=== PATIENT | female | born 1945 | race Caucasian/White ===

== ENCOUNTER 2017-02-10 16:50 | Inpatient (IN) | payer BC, OTHER ==
[~2017-02-10] VITALS: Ht 165.1 cm; Wt 92.0 kg
[~2017-02-10 16:50] MED LIST: ADVIN25050 INH; ASCA500 PO; ATEN-173 PO; CBCI IV; CLTP PO; CLX20 PO; CUBICIN IV; HYDC25 PO; OXYC-57 PO; SYN50 PO
[2017-02-10 17:39] LABS: HEMATOCRIT 37.9 % (37-47); MEAN CELL VOLUME 96.4 fL (80-100); MEAN CORPUSCULAR HEMOGLOBIN 30.8 pg (25-34); MEAN CORPUSCULAR HGB CONC 31.9 g/dl (32-36); MEAN PLATELET VOLUME 11.3 fL (7.4-10.4); PLATELET COUNT 181 K/uL (130-400); RED BLOOD COUNT 3.93 M/uL (4.2-5.4); WHITE BLOOD COUNT 6.41 K/uL (4.8-10.8)
[2017-02-10 17:52] LABS: INR 1.1 (0.9-1.1); PROTHROMBIN TIME (PATIENT) 11.4 SECONDS (9.0-12.0)
--- NOTE | 2017-02-10 17:54 | History and Physical ---
History & Physical Date & Time of Service: Feb 10, 2017 at 17:35 Chief Complaint: Knee Laceration, Possible Infection Primary Care Physician: Yovani Kraft D.O. History of Present Illness Source: patient History of Present Illness: 1. right knee laceration check Ms Thakur is a 71 year old female who is here for a follow up of right knee laceration check. She presents with Laceration check on the right side. She states that the symptoms have been acute traumatic and began 2 weeks ago. She indicates the injury occurred at home. Bree states that the symptoms began as the result of a fall. The symptoms occur constantly. The problem is worse. Pt. reports in the past couple days her laceration wound has slightly opened and has produced some drainage. Currently the patient states that the symptoms are moderate. The pain is described as Swelling and Drainage. The symptoms occur continuously. The symptoms are aggravated by Bending. In addition to right knee laceration check the patient is also experiencing tenderness and Red & Draining. The patient has had a previous x-ray. Pt. is on Keflex She has had Pt. is ambulating with cane and wearing knee immobilizer. Patient has had joint replacement. 05-06-09 Dr. Bruno performed Original Right TKA. 01-26-11 Right knee arthroscopy with synovectomy, excision neuroma & patella bursa with rev. medial portal. 04-15-11 Right TKA I & D medial portal. 05-02-11 Right TKA I & D medial portal with wound vac. 08-17-11 Right TKA ANNALISE. Past Medical/Surgical History PAST MEDICAL HISTORY: 1. COPD. 2. Depression. 3. Headaches. 4. Hypertension. 5. Thyroid disease. Immunizations History of Influenza Vaccine: Yes Influenza Vaccine Date: May 16, 2010 History of Tetanus Vaccine?: Yes History of Pneumococcal: Yes History of Hepatitis B Vaccine: Yes Allergies Coded Allergies: Iodine (Verified Allergy, Severe, ANAPHYLAXIS,RASH,REDNESS, 09/11/09) Naloxone (Unverified Allergy, Mild, nausea, 04/15/11) Sulfa Drugs (Verified Allergy, Unknown, RASH, TAKES HCTZ AT HOME, 09/11/09) Adhesives (Verified Adverse Reaction, Mild, SKIN TEARING AND BLISTERING, ) Codeine (Verified Adverse Reaction, Unknown, NAUSEA, 09/11/09) Hydrocodone (Verified Adverse Reaction, Unknown, N&V, 09/11/09) Morphine (Verified Adverse Reaction, Unknown, N&V, 09/11/09) Pentazocine (Verified Adverse Reaction, Unknown, NAUSEA, 09/11/09) Propoxyphene (Verified Adverse Reaction, Unknown, N&V, TAKES AT HOME, ) GENERIC ONLY - CAUSES REACTION Tramadol (Verified Adverse Reaction, Unknown, NAUSEA, 05/15/10) Home Medications Scheduled Ascorbic Acid (Vitamin C *), 500 MG PO BID Atenolol (Tenormin), 25 MG PO QAM Calcium/Vitamin D (Caltrate 600 Plus *), 1 TAB PO BID Citalopram (Celexa *), 20 MG PO QAM Daptomycin (Cubicin), 470 MG IV DAILY Fluticasone Prop/Salmeterol (Advair Diskus 250/50 Mcg *), 1 PUFF INH Q12HR Hydrochlorothiazide (Hctz *), 12.5 MG PO QAM Levothyroxine (Synthroid *), 0.05 MG PO QAM Oxycodone/Acetaminophen 5MG/325MG (Percocet 5MG/325MG), 1-2 TABLETS PO Q4-6HR PRN [Cubicin], 500 MG IV DAILY Scheduled PRN Oxycodone/Acetaminophen 5MG/325MG (Percocet 5MG/325MG), 1-2 TAB PO Q4H PRN Oxycodone/Acetaminophen 5MG/325MG (Percocet 5MG/325MG), 1-2 TAB PO Q4-6HR PRN PRN Review of Systems Constitutional: No fever, No chills, No sweats, No weight loss, No weakness, No fatigue, No problem reported Eyes: No worsening of vision, No eye pain, No redness, No discharge, No diplopia, No problem reported ENT: No hearing loss, No unusual epistaxis, No nasal symptoms, No sore throat, No tinnitus, No dental problems, No trouble swallowing, No problem reported Respiratory: No cough, No sputum, No wheezing, No shortness of breath, No dyspnea on exertion, No dyspnea at rest, No hemoptysis, No problem reported Cardiovascular: No chest pain, No orthopnea, No PND, No edema, No claudication , No palpitations, No problem reported Abdomen: No pain, No nausea, No vomiting, No diarrhea, No constipation, No GI bleeding, No problem reported Physical Exam General Appearance: WD/WN, no apparent distress Head: normocephalic, atraumatic Eyes: normal inspection, PERRL ENT: normal ENT inspection Neck: supple Respiratory/Chest: chest non-tender, lungs clear Cardiovascular: regular rate, rhythm, no edema Right knee significant for laceration just distal to patella, approximately 5cm in length, skin edges approximated with nylon sutures. no significant drainage at present time. NVDI. ligamentously stable. slight erythema Diagnostics Laboratory Results Results Past 24 Hours Test 02/10/17 17:22 Range/Units Impression Assessment and Plan Right knee laceration, possible cellulitis s/p Right TKA in 2008 -will admit for IV abx and observation -knee immobilizer, may WBAT. no forced flexion, allowed to flex to 60 degrees. -consult ID for recommendations of Abx VTE Prophylaxis VTE Risk Assessment Done? Y/N: Yes Risk Level: Low
[2017-02-10 18:03] LABS: BLOOD UREA NITROGEN 14 mg/dl (7-18); BUN/CREATININE RATIO 12.8 (10-20); C-REACTIVE PROTEIN 1.11 mg/dl (0-0.29); CALCIUM 9.3 mg/dl (8.5-10.1); CARBON DIOXIDE 33 mmol/L (21-32); CHLORIDE 103 mmol/L (98-107); GLUCOSE 88 mg/dl (70-99); POTASSIUM 3.6 mmol/L (3.5-5.1); SODIUM 141 mmol/L (136-145)
[2017-02-10 19:11] VITALS: BP 130/83; PULSE 57; TEMP 37.1; O2SAT 96; Ht 165.1 cm; Wt 92.0 kg
[2017-02-10] MEDS: CEFAZOLIN IV 1,000 MG in DEXTROSE 5% 50ML 50 ML IV SCH (19:31)
[2017-02-10] MEDS: D5W AND 1/2NSS 1,000 ML IV SCH (19:31)
[2017-02-10] MEDS ORDERED: FRS/40 PO (20:34)
[2017-02-10] MEDS ORDERED: LEVO50TA6 PO (20:36)
[2017-02-10] MEDS ORDERED: GABA-113 PO (20:38)
[2017-02-10] MEDS ORDERED: LISI-729 PO (20:39)
[2017-02-10] MEDS ORDERED: LORA-741 PO (20:41)
[2017-02-10] MEDS ORDERED: POTA10TA32 PO (20:43)
[2017-02-10] MEDS ORDERED: SIMV20TA2 PO (20:46)
[2017-02-10] MEDS ORDERED: PRLSR20 PO (20:46)
[2017-02-10] MEDS: DOCUSATE SODIUM 100 MG CAP PO SCH (21:38)
[2017-02-10] MEDS ORDERED: NURSING VERBAL MED ORDER ONE (22:00)
[2017-02-10] MEDS ORDERED: OXYCODONE/ACETAMINOPHEN 5-325 TAB PO PRN (22:15)
[2017-02-10 22:46] VITALS: BP 112/68; PULSE 56; TEMP 36.8; O2SAT 95
[2017-02-11] MEDS: CEFAZOLIN IV 1,000 MG in DEXTROSE 5% 50ML 50 ML IV SCH ×3 (02:03→18:43)
[2017-02-11] MEDS: D5W AND 1/2NSS 1,000 ML IV SCH ×2 (05:47→19:30)
[2017-02-11 07:12] VITALS: BP 120/71; PULSE 56; TEMP 36.4; O2SAT 97
[2017-02-11] MEDS: DOCUSATE SODIUM 100 MG CAP PO SCH ×2 (09:01→20:47)
[2017-02-11] MEDS: PANTOprazole SOD 40 MG TAB PO SCH (09:01)
--- NOTE | 2017-02-11 09:25 | Medical Consult ---
Consultation Date of Consultation: Feb 11, 2017. Attending Physician: Akin Bruno D.O. History of Present Illness pt fell at home and cut right knee on floor, had stitches but felt middle of wound left open, continued to drain. was given 6 days keflex at time of laceration, then stopped. last week leg became red and warm, continued to drain , no purulence. + bleeding. + pain, no f/c. went to office, started back on keflex on but had worsening eyrthema in lower leg, admitted. still no fevers. no leukocytosis. placed on ancef, tolerating well. allergy to sulfa. no cultures. all remaining ros reviewed and are negative. Social History Smoking Status: Former Smoker Allergies Coded Allergies: Iodine (Verified Allergy, Severe, ANAPHYLAXIS,RASH,REDNESS, 09/11/09) Naloxone (Unverified Allergy, Mild, nausea, 04/15/11) Sulfa Drugs (Verified Allergy, Unknown, RASH, TAKES HCTZ AT HOME, 09/11/09) Adhesives (Verified Adverse Reaction, Mild, SKIN TEARING AND BLISTERING, ) Codeine (Verified Adverse Reaction, Unknown, NAUSEA, 09/11/09) Hydrocodone (Verified Adverse Reaction, Unknown, N&V, 09/11/09) Morphine (Verified Adverse Reaction, Unknown, N&V, 09/11/09) Pentazocine (Verified Adverse Reaction, Unknown, NAUSEA, 09/11/09) Propoxyphene (Verified Adverse Reaction, Unknown, N&V, TAKES AT HOME, ) GENERIC ONLY - CAUSES REACTION Tramadol (Verified Adverse Reaction, Unknown, NAUSEA, 05/15/10) Current Inpatient Medications Current Inpatient Medications Medications (Trade) Dose Ordered Sig/Rodolfo Route Start Time Stop Time Status Last Admin Dose Admin Acetaminophen (Tylenol Tab) 650 mg Q6H PRN PO 02/10/17 17:00 03/12/17 16:59 Diphenhydramine HCl (Benadryl Cap) 25 mg Q8 PRN PO 02/10/17 17:00 03/12/17 16:59 Docusate Sodium (coLACE CAP) 100 mg BID PO 02/10/17 21:00 03/12/17 20:59 02/11/17 09:01 100 MG Pantoprazole Sodium (Protonix Tab) 40 mg QAM PO 02/11/17 09:00 03/13/17 08:59 02/11/17 09:01 40 MG Dextrose/Sodium Chloride 1,000 ml @ 75 mls/hr [id number] IV 02/10/17 16:54 03/12/17 16:53 02/11/17 05:47 75 MLS/HR Cefazolin Sodium 1000 mg/Dextrose 55 ml @ 100 mls/hr Q8H IV 02/10/17 18:00 02/13/17 16:59 02/11/17 02:03 100 MLS/HR Oxycodone/ Acetaminophen (Percocet 5-325mg Tab) `1-2 tabs for pain 1 tab ... Q4H PRN PO 02/10/17 22:15 02/24/17 22:14 02/10/17 22:27 1 TAB Physical Exam Date Time Temp Pulse Resp B/P (MAP) Pulse Ox O2 Delivery O2 Flow Rate FiO2 02/11/17 07:28 Room Air 02/11/17 07:12 36.4 56 16 120/71 (87) 97 Room Air 02/11/17 00:30 Room Air 02/10/17 22:46 36.8 56 16 112/68 (83) 95 Room Air 02/10/17 19:11 37.1 57 20 130/83 96 Room Air General Appearance: WD/WN, no apparent distress Head: normocephalic, atraumatic Eyes: normal inspection, EOMI Neck: supple Respiratory/Chest: lungs clear, normal breath sounds, no respiratory distress Cardiovascular: regular rate, rhythm, no edema Abdomen/GI: non tender, soft Extremities/Musculoskelatal: no pedal edema, + pertinent finding (right knee laceration with stitches in place, min erythema, no warmth, dried blood noted, no active drainage) Neurologic/Psych: alert, oriented x 3 Skin: normal color, no rash Laboratory Results Last 24 Hours Test 02/10/17 17:22 White Blood Count 6.41 K/uL Red Blood Count 3.93 M/uL Hemoglobin 12.1 g/dL Hematocrit 37.9 % Mean Corpuscular Volume 96.4 fL Mean Corpuscular Hemoglobin 30.8 pg Mean Corpuscular Hemoglobin Concent 31.9 g/dl RDW Standard Deviation 49.9 fL RDW Coefficient of Variation 14.1 % Platelet Count 181 K/uL Mean Platelet Volume 11.3 fL Erythrocyte Sedimentation Rate 28 mm/hr Prothrombin Time 11.4 SECONDS Prothromb Time International Ratio 1.1 Sodium Level 141 mmol/L Potassium Level 3.6 mmol/L Chloride Level 103 mmol/L Carbon Dioxide Level 33 mmol/L Anion Gap 5.0 mmol/L Blood Urea Nitrogen 14 mg/dl Creatinine 1.10 mg/dl Estimated GFR () 58.9 Estimated GFR (Non- 50.8 BUN/Creatinine Ratio 12.8 Random Glucose 88 mg/dl Calcium Level 9.3 mg/dl C-Reactive Protein 1.11 mg/dl Assessment & Plan (1) Knee laceration Assessment & Plan: would consider change to vanco to add for potential mrsa. would obtain culture if drainage. sulfa allergy, if improved, could d/c doxy 100mg po bid with food to coverage for mrsa as well.
--- NOTE | 2017-02-11 11:04 | Progress Note ---
Orthopedic SOAP Note Subjective Date of Service: Feb 11, 2017. Additional Notes: no significant pain Objective cellulitis right lower leg ,laceration with no further drainage and I could not express any pus,minimal erythema,no change in partial wound dehiscence. Date Time Temp Pulse Resp B/P (MAP) Pulse Ox O2 Delivery O2 Flow Rate FiO2 02/11/17 07:28 Room Air 02/11/17 07:12 36.4 56 16 120/71 (87) 97 Room Air 02/11/17 00:30 Room Air 02/10/17 22:46 36.8 56 16 112/68 (83) 95 Room Air 02/10/17 19:11 37.1 57 20 130/83 96 Room Air Laboratory Results 24 Hours: Test 02/10/17 17:22 Hematocrit 37.9 % Hemoglobin 12.1 g/dL Prothromb Time International Ratio 1.1 Prothrombin Time 11.4 SECONDS Assessment wound infection improved ,ongoing cellulitis Plan nonsurgical treatment,IV antibiotics per infectious disease, a superficial wound culture may not be helpful unless any further drainage detected.
[2017-02-11 15:11] VITALS: BP 119/78; PULSE 63; TEMP 36.4; O2SAT 97
[2017-02-11] MEDS ORDERED: NURSING VERBAL MED ORDER ONE (20:15)
[2017-02-11] MEDS ORDERED: ONDANSETRON INJ 2 MG/ML 2 ML VIAL IV PRN (20:30)
[2017-02-11 22:51] VITALS: BP 144/75; PULSE 63; TEMP 36.8; O2SAT 95
[2017-02-12] MEDS: CEFAZOLIN IV 1,000 MG in DEXTROSE 5% 50ML 50 ML IV SCH ×3 (01:51→18:24)
[2017-02-12 07:12] VITALS: BP 138/84; PULSE 66; TEMP 36.9; O2SAT 94
--- NOTE | 2017-02-12 08:34 | Orthopedic Progress Note ---
Orthopedic Progress Note Date of Service Feb 12, 2017. Subjective Reports: feeling well Objective N/V intact, toes mobile Laceration anterior knee intact with sutures, small eschar mid portion, no drainage or erythema Date Time Temp Pulse Resp B/P (MAP) Pulse Ox O2 Delivery O2 Flow Rate FiO2 02/12/17 07:12 36.9 66 17 138/84 (102) 94 Room Air 02/11/17 23:05 Room Air 02/11/17 22:51 36.8 63 16 144/75 (98) 95 Room Air 02/11/17 15:45 Room Air 02/11/17 15:11 36.4 63 18 119/78 (92) 97 Room Air Assessment & Plan Assessment: 71 yo female with improving cellulitis right knee/lower extremity Plan: 1. Cont IV abx possibly another 24 hours and then likely d/c on po abx pending ID recommendations
[2017-02-12] MEDS: PANTOprazole SOD 40 MG TAB PO SCH (08:57)
[2017-02-12] MEDS: DOCUSATE SODIUM 100 MG CAP PO SCH ×2 (08:57→21:01)
[2017-02-12] MEDS: ACETAMINOPHEN 325 MG TAB PO PRN ×2 (08:58→22:08)
[2017-02-12 10:35] VITALS: BP 147/81; PULSE 60
[2017-02-12] MEDS: LISINOPRIL 2.5 MG TAB PO SCH (10:35)
[2017-02-12 14:58] VITALS: BP 119/76; PULSE 53; TEMP 37.1; O2SAT 92
[2017-02-12 22:55] VITALS: BP 147/73; PULSE 60; TEMP 36.8; O2SAT 95
[2017-02-13] MEDS: CEFAZOLIN IV 1,000 MG in DEXTROSE 5% 50ML 50 ML IV SCH ×2 (01:39→09:30)
[2017-02-13 06:59] VITALS: BP 148/82; PULSE 64; TEMP 37; O2SAT 92
--- NOTE | 2017-02-13 07:02 | Orthopedic Progress Note ---
Orthopedic Progress Note Date of Service Feb 13, 2017. Subjective Reports: feeling well, pain controlled w PO medications, Denies: complaints, chest pain, SOB, nausea / vomiting, light headedness, calf pain Additional Notes: denies fever/chills, denies drainage since Monday, decreased redness. Objective calves soft nontender, N/V intact, capillary refill less than 2 sec., A&O x3, toes mobile healing laceration just distal to inferior pole patella, horizontal laceration, sutures intact. no drainage noted, decreased erythema around laceration. Calf SNT. Date Time Temp Pulse Resp B/P (MAP) Pulse Ox O2 Delivery O2 Flow Rate FiO2 02/12/17 23:15 Room Air 02/12/17 22:55 36.8 60 16 147/73 (97) 95 Room Air 02/12/17 15:15 Room Air 02/12/17 14:58 37.1 53 16 119/76 (90) 92 Room Air 02/12/17 10:35 60 147/81 (103) 02/12/17 08:28 Room Air 02/12/17 07:12 36.9 66 17 138/84 (102) 94 Room Air Assessment & Plan Assessment: 71 yo female with improving cellulitis right knee/lower extremity Plan: Cellulitis continues to improve, will plan for dc today on PO Abx bid. has follow up appt on Monday for suture removal in the office, will recheck at that time. contact us sooner with any worsening of her symptoms/increased redness/drainage. (1) Knee laceration Discharge Planning Discharge Planning: home
--- NOTE | 2017-02-13 07:06 | Discharge Instructions ---
Discharge Instructions Date of Service Feb 13, 2017. Admission Reason for Admission: Knee Laceration, Possible Infection Discharge Discharge Diagnosis / Problem: Left knee cellulitis/laceration Discharge Goals Goal(s): Decrease discomfort, Improve function, Increase independence Activity Recommendations Activity Limitations: as noted below May Resume Sexual Activity: when tolerated Shower/Bathe: keep incision dry Driving or Machine Use: no limitations (unless taking Percocet) Weightbearing Status: Left weightbearing (as tolerated) . Instructions / Follow-Up Instructions / Follow-Up ACTIVITY RECOMMENDATIONS: A. You may progress at your own pace from walking with a walker or crutches to a cane; then to no assistive devices. B. Make walking a part of your daily routine. Be up as much as comfortable with rest periods throughout the day. Rest with leg elevation is very important. Use the ice wrap frequently for the first 3-4 weeks. C. There are no restrictions on activities. You may ride in a car, shop, participate in distribution engineering technologist and all social activities. D. You may shower, no tub baths until cleared by your doctor. SPECIAL CARE INSTRUCTIONS: VERY IMPORTANT TO READ AND REVIEW A. There are a few signs you need to watch for after you are home. Call [facility] if you notice any of the followin. Increased severe knee pain. Some pain is expected especially when you exercise. 2. Increased swelling in your leg or knee; pain or swelling of the calf muscle in either lower leg. 3. Any fluid drainage from the incision. 4. Shortness of breath or chest pain. B. Please call [facility] at if you have any concerns or questions about your operation or recovery. The doctor or his nurse will return your call promptly. C. You must take your Doxycycline twice daily with food as prescribed until course is completed. IMPORTANT: * CALL IF INCREASED PAIN, REDNESS, DRAINAGE OR FEVER GREATER THAT 101. FOLLOW UP VISIT: You have a follow up appointment scheduled for this Monday02/15/17. Current Hospital Diet Patient's current hospital diet: Regular Diet Discharge Diet Recommended Diet: Regular Diet Pending Studies Studies pending at discharge: no Medical Emergencies . Who to Call and When: Medical Emergencies: If at any time you feel your situation is an emergency, please call 911 immediately. . Non-Emergent Contact Non-Emergency issues call your: Primary Care Provider, Surgeon . "Provider Documentation" section prepared by Zach Quinones. . VTE Core Measure Inpt VTE Proph given/why not?: Treatment not indicated [place] Drug Monitoring Program Search Results: patient reviewed within database, no issues identified
[2017-02-13] MEDS ORDERED: DOXY100C76 PO (07:11)
[2017-02-13] MEDS ORDERED: OXYC-57 PO (07:11)
[2017-02-13] MEDS: LISINOPRIL 2.5 MG TAB PO SCH (09:00)
[2017-02-13 09:25] VITALS: BP 136/81; PULSE 57
[2017-02-13] MEDS: DOCUSATE SODIUM 100 MG CAP PO SCH (09:26)
[2017-02-13] MEDS: PANTOprazole SOD 40 MG TAB PO SCH (09:27)
--- NOTE | 2017-02-13 09:36 | Discharge Summary ---
Orthopedic Discharge Summary Admission Date/Reason Feb 10, 2017 at 17:06 Knee Laceration, Possible Infection. Discharge Date/Disposition Feb 13, 2017 Home Diagnosis Principal Diagnosis: Right knee cellulitis Procedure(s) Performed NONE Consultations Infectious Disease Medication Reconciliation New Medications: Doxycycline Monohydrate (Monodox) 100 Mg Cap 100 MG PO BID for 14 Days, #28 CAP take with food Changed Medications: Oxycodone/Acetaminophen 5MG/325MG (Percocet 5MG/325MG) Tab 1-2 TABLETS PO Q6HWA PRN for Pain, #36 0 Refills (Changed from: 1 - 2 TABLETS; Q4-6HR PRN) PAIN Continued Medications: Ascorbic Acid (Vitamin C *) 500 Mg Tab 500 MG PO BID, 0 Refills Atenolol (Tenormin) 25 Mg Tab 25 MG PO QAM Calcium/Vitamin D (Caltrate 600 Plus *) Tab 1 TAB PO BID, 0 Refills Citalopram (Celexa *) 20 Mg Tab 20 MG PO QAM Fluticasone Prop/Salmeterol (Advair Diskus 250/50 Mcg *) Aerp 1 PUFF INH Q12HR Furosemide (Lasix) 40 Mg Tab 40 MG PO BID, TAB Gabapentin (Neurontin) 300 Mg Cap 300 MG PO BID, #2 CAP Hydrochlorothiazide (Hctz *) 12.5 Mg Cap 12.5 MG PO QAM Levothyroxine (Synthroid *) 0.05 Mg Tab 0.05 MG PO QAM Levothyroxine Sodium (Levothyroxine Sodium) 50 Mcg Tab 1 TAB PO DAILY for 30 Days, #30 TAB 5 Refills Lisinopril (Zestril) 5 Mg Tab 5 MG PO DAILY, #0.5 TAB Lorazepam (Ativan) 0.5 Mg Tab 0.5 MG PO DAILY, #1 TAB Omeprazole (Prilosec) 20 Mg Capcr 20 MG PO DAILY, CAP Potassium Chloride Microencaps (Potassium Chloride Er) 10 Meq Tab 1 TAB PO BID for 30 Days, #60 TAB 5 Refills Simvastatin (Zocor) 20 Mg Tab 1 TAB PO HS for 90 Days, #90 TAB 1 Refill Discontinued Medications: Daptomycin (Cubicin) 50 Mg/Ml Inj 470 MG IV DAILY for 10 Days, 0 Refills Oxycodone/Acetaminophen 5MG/325MG (Percocet 5MG/325MG) Tab 1 - 2 TAB PO Q4H PRN, #36 0 Refills Oxycodone/Acetaminophen 5MG/325MG (Percocet 5MG/325MG) Tab 1 - 2 TAB PO Q4-6HR PRN PRN, #60 0 Refills [Cubicin] () 500 MG IV DAILY "I GET THIS AT NOON" Admission Physical Exam As per Admitting History & Physical. Hospital Course Bree was admitted on 02/10/17 for IV antibiotics after developing cellulitis around a right leg wound that she sustained after having a fall. She had a previous TKA in 2008. she was admitted and received IV antibiotics, Infectious disease was consulted and followed along. Her redness has improved, and after evaluation on 02/13/17, she will be discharged on PO Doxycycline twice a day for 2 weeks. will f/u on 02/15/17 for suture removal. Last Vital Signs Documentation Date Time Temp Pulse Resp B/P (MAP) Pulse Ox O2 Delivery O2 Flow Rate FiO2 02/13/17 09:25 57 136/81 (99) 02/13/17 06:59 37.0 17 92 Room Air Test 02/10/17 17:22 Range/Units White Blood Count 6.41 4.8-10.8 K/uL Red Blood Count 3.93 4.2-5.4 M/uL Hemoglobin 12.1 12.0-16.0 g/dL Hematocrit 37.9 37-47 % Mean Corpuscular Volume 96.4 80-100 fL Mean Corpuscular Hemoglobin 30.8 25-34 pg Mean Corpuscular Hemoglobin Concent 31.9 32-36 g/dl RDW Standard Deviation 49.9 36.4-46.3 fL RDW Coefficient of Variation 14.1 11.5-14.5 % Platelet Count 181 130-400 K/uL Mean Platelet Volume 11.3 7.4-10.4 fL Erythrocyte Sedimentation Rate 28 0-21 mm/hr Prothrombin Time 11.4 9.0-12.0 SECONDS Prothromb Time International Ratio 1.1 0.9-1.1 Sodium Level 141 136-145 mmol/L Potassium Level 3.6 3.5-5.1 mmol/L Chloride Level 103 98-107 mmol/L Carbon Dioxide Level 33 21-32 mmol/L Anion Gap 5.0 3-11 mmol/L Blood Urea Nitrogen 14 7-18 mg/dl Creatinine 1.10 0.60-1.20 mg/dl Estimated GFR () 58.9 Estimated GFR (Non- 50.8 BUN/Creatinine Ratio 12.8 10-20 Random Glucose 88 70-99 mg/dl Calcium Level 9.3 8.5-10.1 mg/dl C-Reactive Protein 1.11 0-0.29 mg/dl Discharge Instructions Please refer to the electronic Patient Visit Report (Discharge Instructions) for additional information.
[2017-02-13 11:09] VITALS: BP 136/81; PULSE 57; TEMP 37; O2SAT 92
== END 2017-02-13 14:00 | disposition home health service (06) | DRG 603 ==
LOC: C.MSN 17:06
PROVIDERS: ADMIT Orthopaedic Surgery; ATTEND Orthopaedic Surgery
DX: L03.115 Cellulitis of right lower limb (principal); S81.011A Laceration without foreign body, right knee, initial encounter; J44.9 Chronic obstructive pulmonary disease, unspecified; F32.9 Major depressive disorder, single episode, unspecified; R51 Headache; I10 Essential (primary) hypertension; Z96.651 Presence of right artificial knee joint; Y92.009 Unspecified place in unspecified non-institutional (private) residence as the place of occurrence of the external cause

== ENCOUNTER → 2017-02-15 | Outpatient (CLI) | payer OTHER ==
[~2017-02-15] MED LIST changes: -CBCI IV; -CUBICIN IV; +DOXY100C76 PO; +FRS/40 PO; +GABA-113 PO; +LEVO50TA6 PO; +LISI-729 PO; +LORA-741 PO; +POTA10TA32 PO; +PRLSR20 PO; +SIMV20TA2 PO
== END | disposition home or self-care (01) ==
LOC: C.LABSPEC 11:21
PROVIDERS: ATTEND Orthopaedic Surgery
DX: S81.001D Unspecified open wound, right knee, subsequent encounter (principal); X58.XXXD Exposure to other specified factors, subsequent encounter

== ENCOUNTER 2023-01-04 09:57 | Inpatient (IN) ==
--- NOTE | 2022-12-30 08:04 | History & Physical Report ---
Date of Service December 30, 2022 date of surgery: 01/04/23 Procedure: Right Knee Poly Exchange Surgeon: Akin Bruno Assessment & Plan (1) Painful total knee replacement, right: Plan: Risk and benefits discussed with patient, she like to proceed with right knee polyethylene exchange at [facility]. Plan will be overnight stay with discharge home with home health physical therapy the following day. Placed on aspirin 81 mg twice a day for 1 month postop DVT prophylaxis. Follow-up in the office 2 weeks after surgery sooner if she is having any issues The risks and benefits have been discussed including, but not limited to, risk of infection, nerve injury, stiffness, loss of motion, failure to improve, etc. Reasonable outcomes and options of treatment were discussed. An explanation of appropriate alternatives to the procedure that may be advantageous were discussed and their risks and benefits, as well as the risks and benefits of not proceeding with treatment. I offered to answer any additional inquiries concerning the treatment involved. All the patient's questions were answered. The patient is agreeable, understanding of the treatment plan and alternatives, and wishes to proceed with the treatment plan. History of Present Illness Chief Complaint: Right knee pain Primary Care Provider: DEMARCO Jerez Bree is a pleasant 77-year-old female who presents for preop evaluation prior to her right knee poly exchange. 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 She states that on 522 she fell and injured her knee, she twisted her knee while in the shower and felt a "pop". She had x-rays and CT scan taken at [facility]. She was examined by Dr. Bruno and feels that she either has a broken post to the polyethylene or has jumped her post. Allergies Allergy/AdvReac Type Severity Reaction Status Date / Time iodine Allergy Severe ANAPHYLAXIS Verified 12/29/22 14:31 ,RASH,REDNE SS naloxone Allergy Mild nausea Unverified 12/29/22 14:31 Sulfa (Sulfonamide Allergy Unknown RASH, Verified 12/29/22 14:31 Antibiotics) TAKES HCTZ AT HOME enoxaparin [From Lovenox] Allergy hematoma Verified 12/29/22 14:32 and pain from hematoma meloxicam [From Mobic] Allergy weight gain Verified 12/29/22 14:32 adhesive AdvReac Mild SKIN Verified 12/29/22 14:31 TEARING AND BLISTERING codeine AdvReac Unknown NAUSEA Verified 12/29/22 14:31 hydrocodone AdvReac Unknown N&V Verified 12/29/22 14:31 morphine AdvReac Unknown N&V Verified 12/29/22 14:31 pentazocine AdvReac Unknown NAUSEA Verified 12/29/22 14:31 propoxyphene AdvReac Unknown N&V, TAKES Verified 12/29/22 14:31 AT HOME tramadol AdvReac Unknown NAUSEA Verified 12/29/22 14:31 Home Medications Medication Instructions Recorded Confirmed Type atenolol 25 mg tablet 25 mg PO QAM 03/14/22 12/29/22 History calcium carb,cit 315 mg-vitamin D3 1 tab PO BID 03/14/22 12/29/22 History 250 unit-phytosterols 200 mg tablet (Citracal-D3 Plus [employer]) cholecalciferol (vitamin D3) 25 25 mcg PO QAM 03/14/22 12/29/22 History mcg (1,000 unit) capsule furosemide 40 mg tablet (Lasix) 40 mg PO BID 03/14/22 12/29/22 History lisinopril 5 mg tablet 5 mg PO QAM 03/14/22 12/29/22 History sennosides 8.6 mg-docusate sodium 2 tab-cap PO BID PRN Constipation 03/14/22 12/29/22 History 50 mg capsule (Senna Plus) simvastatin 20 mg tablet 20 mg PO HS 03/14/22 12/29/22 History vitamin C 30 mg-zinc citrate 1.1 1 tab PO BID 03/14/22 12/29/22 History mg-elderberry 25 mg chewable tablet (Sambucus Elderberry) diclofenac sodium 75 mg 75 mg PO BID 09/02/22 12/29/22 History tablet,delayed release ascorbic acid (vitamin C) 500 mg 500 mg PO BID 12/29/22 12/29/22 History tablet (Vitamin C With Keturah Hips) biotin 1,000 mcg chewable tablet 1,000 mcg PO BID 12/29/22 12/29/22 History duloxetine 60 mg capsule,delayed 60 mg PO QPM 12/29/22 12/29/22 History release (Cymbalta) hydroxychloroquine 200 mg tablet 200 mg PO BID 12/29/22 12/29/22 History levothyroxine 75 mcg tablet 75 mcg PO QAM 12/29/22 12/29/22 History multivit with 2 tab PO QAM 12/29/22 12/29/22 History [id number]-lutein 8 mg iron-400 mcg-300 mcg tablet (Centrum Silver Women) Past Med/Surg History Medical History Anxiety Depression Fluid retention Heart palpitations "been ongoing for years"; f/u [facility] HTN (hypertension) Hx of migraines Hypercholesteremia Hypothyroidism Lupus arthritis Sleep apnea non-compliant with CPAP Surgical History History of esophagogastroduodenoscopy (EGD) History of hysterectomy w/removal appendix at same time History of knee replacement RT and LT. Hx of basal cell carcinoma excision top of ear Hx of cardiac catheterization "years ago, don't remember why they even did it"; [facility], no stents>no cardiac findings Hx of cholecystectomy Hx of colonoscopy Previous back surgery lumbar spine, cervical spine (ROM problems turning side to side) Social History Smoking Status: Former smoker Smoking End Date: years ago; Second Hand Exposure: Yes (hx father was heavy smoker); Do You Dip or Chew Tobacco: No; Tobacco Cessation Education Requested by Patient: No Hx Alcohol Use: Yes Hx Substance Use: Yes (medical card) Last Used Substance Other:: 2 months ago Preferred Language: Bermudian Communication Ability: Effective Visual Impairment: Limited Hearing Ability: Normal Pipe Stem Sawyer Required: No Beliefs That Will Affect Care: None marital status: / Current Living Situation: Alone current occupational status: retired Other Information That Helps Us Care for You: No Feels Safe at Home: Yes Safety Concerns: Feels Safe At This Time Assistive Devices: Brace/Splint/Immobilizer, Glasses and Walker Review of Systems Review of Systems: All systems reviewed & are unremarkable except as noted in HPI & below Constitutional: no fever, no chills and no sweats Respiratory: no cough and no dyspnea Cardiovascular: no chest pain, no dyspnea and no orthopnea Gastrointestinal: no abdominal pain, no nausea and no vomiting Musculoskeletal: as per Subjective / HPI Physical Exam Constitutional: WD/WN, vitals as above no acute distress Respiratory: normal respiratory effort, lungs clear to auscultation no respiratory distress, no labored breathing and does not use accessory muscles Cardiovascular: RRR, no murmur, no edema Gastrointestinal (Abdomen): normal bowel sounds, soft, nontender, no hepatosplenomegaly Musculoskeletal: Right Knee Exam Ambulates with a limp, overall neutral alignment, there is no atrophy warmth or ecchymosis noted, mild effusion, maximum tenderness medial joint. no crepitation with motion, valgus stress Negative, Varus stress Negative, no Extensor lag, Pain with Active range of motion, also passive painful ROM, Range of motion 0 /3/110. No pain with active/passive ROM of ankle. Lower Extremity Strength normal. Lower Extremity Neuro-vascular is normal Results & Data Results & Data Diagnostic Findings The patient is status post total knee arthroplasty. The hardware is intact. No fracture or dislocation or acute bony findings.
--- NOTE | 2023-01-03 09:42 | Anesthesiology Consultation ---
Date of Service January 03, 2023 Assessment & Plan (1) Encounter for pre-operative examination: Addendum 01/03/23 at 1247 Pt requiring admission post operatively. Plan for recheck with COVADDIE Huffman AM DOS due to possibility that patient may have a roommate. OR aware. Huffman order placed -[facility] Plan - check CBC with diff, BMP and coags STAT am DOS. Type and screen will be done DOS per protocol. - possible difficult intubation: limited cervical spine ROM s/p surgery (neuraxial anesthesia is typical plan for procedure). - cardiology clearance 12/30/22: "...preoperative cardiac clearance...redo right knee arthroplasty...rare bout of palpitations that are brief and self- limiting...no cardiovascular risk factors pertaining to surgery...able to perform activities at or above 4 METs...do not recommend further invasive or noninvasive cardiovascular testing or procedures...Off aspirin. Resume when bleeding risk returns to baseline, leave to surgeon...low cardiovascular risk for upcoming procedure..." - PCP clearance 12/30/22: "...right knee poly exchange...feeling generally well overall...it is felt reasonable that patient can undergo scheduled procedure..." - COVID screening: Per coat check attendant on 12/29/2022: Travel screen negative, no known COVID-19 positive contacts or current COVID-19 related symptoms in past 2 weeks. To surgeon's discretion if preop COVID testing is needed. Chart Review Chart Review: Acceptable Risk for Surgery and Patient NOT seen in Pre Admission Testing History Surgery Operation Date: 01/04/23 12:10 Proposed Procedures p Right Knee Poly Exchange - Akin Bruno DO Height/Weight Height: 5 ft 5 in Weight: 89.358 kg Allergies Allergy/AdvReac Type Severity Reaction Status Date / Time iodine Allergy Severe ANAPHYLAXIS Verified 12/29/22 14:31 ,RASH,REDNE SS naloxone Allergy Mild nausea Unverified 12/29/22 14:31 Sulfa (Sulfonamide Allergy Unknown RASH, Verified 12/29/22 14:31 Antibiotics) TAKES HCTZ AT HOME enoxaparin [From Lovenox] Allergy hematoma Verified 12/29/22 14:32 and pain from hematoma meloxicam [From Mobic] Allergy weight gain Verified 12/29/22 14:32 adhesive AdvReac Mild SKIN Verified 12/29/22 14:31 TEARING AND BLISTERING codeine AdvReac Unknown NAUSEA Verified 12/29/22 14:31 hydrocodone AdvReac Unknown N&V Verified 12/29/22 14:31 morphine AdvReac Unknown N&V Verified 12/29/22 14:31 pentazocine AdvReac Unknown NAUSEA Verified 12/29/22 14:31 propoxyphene AdvReac Unknown N&V, TAKES Verified 12/29/22 14:31 AT HOME tramadol AdvReac Unknown NAUSEA Verified 12/29/22 14:31 Medications Home Medications Medication Instructions Recorded Confirmed Last Taken atenolol 25 mg tablet 25 mg PO QAM 03/14/22 12/29/22 Unknown calcium carb,cit 315 mg-vitamin D3 1 tab PO BID 03/14/22 12/29/22 Unknown 250 unit-phytosterols 200 mg tablet (Citracal-D3 Plus [place]) cholecalciferol (vitamin D3) 25 25 mcg PO QAM 03/14/22 12/29/22 Unknown mcg (1,000 unit) capsule furosemide 40 mg tablet (Lasix) 40 mg PO BID 03/14/22 12/29/22 Unknown lisinopril 5 mg tablet 5 mg PO QAM 03/14/22 12/29/22 Unknown sennosides 8.6 mg-docusate sodium 2 tab-cap PO BID PRN Constipation 03/14/22 12/29/22 Unknown 50 mg capsule (Senna Plus) simvastatin 20 mg tablet 20 mg PO HS 03/14/22 12/29/22 Unknown vitamin C 30 mg-zinc citrate 1.1 1 tab PO BID 03/14/22 12/29/22 Unknown mg-elderberry 25 mg chewable tablet (Sambucus Elderberry) diclofenac sodium 75 mg 75 mg PO BID 09/02/22 12/29/22 Unknown tablet,delayed release ascorbic acid (vitamin C) 500 mg 500 mg PO BID 12/29/22 12/29/22 Unknown tablet (Vitamin C With Keturah Hips) biotin 1,000 mcg chewable tablet 1,000 mcg PO BID 12/29/22 12/29/22 Unknown duloxetine 60 mg capsule,delayed 60 mg PO QPM 12/29/22 12/29/22 Unknown release (Cymbalta) hydroxychloroquine 200 mg tablet 200 mg PO BID 12/29/22 12/29/22 Unknown levothyroxine 75 mcg tablet 75 mcg PO QAM 12/29/22 12/29/22 Unknown multivit with 2 tab PO QAM 12/29/22 12/29/22 Unknown ckoslpkt-osiq-HK-lutein 8 mg iron-400 mcg-300 mcg tablet (Centrum Silver Women) Past Medical History Medical History Anxiety Depression Fluid retention Heart palpitations "been ongoing for years"; f/u [facility] HTN (hypertension) Hx of migraines Hypercholesteremia Hypothyroidism Lupus arthritis Sleep apnea non-compliant with CPAP Past Surgical History Surgical History History of esophagogastroduodenoscopy (EGD) History of hysterectomy w/removal appendix at same time History of knee replacement RT and LT. Hx of basal cell carcinoma excision top of ear Hx of cardiac catheterization "years ago, don't remember why they even did it"; [facility], no stents>no cardiac findings Hx of cholecystectomy Hx of colonoscopy Previous back surgery lumbar spine, cervical spine (ROM problems turning side to side) Social History Smoking Status: Former smoker Do You Dip or Chew Tobacco: No Smoking End Date: years ago Hx Alcohol Use: Yes alcohol intake frequency: holidays/special occasions only Hx Substance Use: Yes (medical card) substance use type: marijuana Last Used Substance Other:: 2 months ago Testing Electrocardiogram Date: 12/28/22 Sinus bradycardia, rate 44 bpm Echocardiogram Date: 11/17/20 EF 55% No focal wall motion abnormalities of LV Borderline LVH Dense sclerotic changes involving both the aortic and mitral valve leaflets with mitral annular calcification Mild mitral, aortic, pulmonic and tricuspid valvular insufficiency
[~2023-01-04 09:57] MED LIST changes: +ACETAMINOPHEN 500 MG TAB PO SCH; -ADVIN25050 INH; -ASCA500 PO; -ATEN-173 PO; -CLTP PO; -CLX20 PO; +CeleBREX 200 MG CAP PO SCH; -DOXY100C76 PO; +FAMOTIDINE 20 MG TAB PO SCH; -FRS/40 PO; -GABA-113 PO; +GABAPENTIN 300 MG CAP PO SCH; -HYDC25 PO; -LEVO50TA6 PO; -LISI-729 PO; -LORA-741 PO; +LR 500ML BOLUS, THEN 15ML/HR IV SCH; +MEPIVACAINE HCL 1.5% 30 ML VIAL ONE; +METOCLOPRAMIDE HCL 10 MG TABLET PO SCH; -OXYC-57 PO; -POTA10TA32 PO; -PRLSR20 PO; +ROPIVACAINE 0.5% 5 MG/ML 30 ML VIAL ONE; +ROPIVACAINE 0.5% HCL/PF 150 MG, BUPIVACAINE 0.75% MPF 20 ML, EPINEPHrine 30MG/30ML (OR ... INSTIL SCH; -SIMV20TA2 PO; -SYN50 PO; +TRANEXAMIC ACID 1,000 MG **IV Intra-op IV SCH; +TRANEXAMIC ACID 1,000 MG **IV Pre-op IV SCH; +ceFAZolin 2000MG 2,000 MG/15 ML SYR IV SCH; +dexAMETHasone 4 MG TAB PO SCH
--- NOTE | 2023-01-04 10:55 | History & Physical Bridge Note ---
Date of Service January 04, 2023 History & Physical Bridge Note I have examined the patient, reviewed the History & Physical and in the interval since the performance of the History & Physical I have noted the following changes of clinical significance: no changes noted
[2023-01-04 11:04] LABS: Basophils # (auto) 0.06 K/uL (0-0.2); Basophils % (auto) 0.8 %; Eosinophils # (auto) 0.18 K/uL (0-0.50); Eosinophils % (auto) 2.4 %; Hematocrit (blood only) 44.6 % (37.0-47.0); Immature Granulocytes # (auto) 0.02 K/uL (0.01-0.20); Immature Granulocytes % (auto) 0.3 %; Lymphocytes % (auto) 17.3 %; Mean Corpuscular Hgb Conc 33.6 g/dL (32.0-36.0); Mean Corpuscular Volume 95.1 fL (80.0-100.0); Mean Platelet Volume 11.5 fL (9.4-12.4); Monocytes # (auto) 0.72 K/uL (0.11-0.59); Monocytes % (auto) 9.6 %; Neutrophils # (auto) 5.23 K/uL (1.40-6.50); Neutrophils % (auto) 69.6 %; Platelet Count 170 K/uL (130-400); RDW Coefficient of Variation 13.2 % (11.5-14.5); RDW Standard Deviation 46.1 fL (36.4-46.3); Red Blood Count 4.69 M/uL (4.20-5.40); White Blood Count 7.51 K/ul (4.8-10.8)
[2023-01-04 11:18] LABS: BUN Creatinine Ratio 19.1 (10-20); Calcium 9.6 mg/dl (8.6-10.3); Creatinine Clr Calc Pharmacy 55.7 ml/min; Est GFR (African American) 68.3 ml/min; Est GFR (Non-African American) 58.9 ml/min; Potassium 3.8 mmol/L (3.5-5.1)
[2023-01-04 11:24] LABS: INR 1.1 (0.9-1.1); Partial Thromboplastin Ratio 0.9; Partial Thromboplastin Time 25.8 Seconds (21.0-31.0); Prothrombin Time 12.1 Seconds (9.0-12.0)
[2023-01-04] MEDS ORDERED: MIDAZOLAM HCL 1 MG/ML 2ML VIAL ONE (12:17)
[2023-01-04] MEDS ORDERED: fentaNYL citrate PF 100 MCG/2 ML VIAL ONE (12:17)
[2023-01-04] MEDS ORDERED: BUPIVACAINE 0.5 % 5 MG/1 ML PF 10ML VIAL ONE (13:20)
[2023-01-04] MEDS ORDERED: ROPIVACAINE 0.5% 5 MG/ML 30 ML VIAL ONE (13:20)
[2023-01-04] MEDS ORDERED: ATROPINE SULFATE 0.1 MG/ML 10ML SYR IV PRN (13:51)
[2023-01-04] MEDS ORDERED: ePHEDrine sulfate 50 MG/ML AMP IV PRN (13:51)
[2023-01-04] MEDS ORDERED: fentaNYL citrate PF 100 MCG/2 ML VIAL IV PRN (13:51)
[2023-01-04] MEDS ORDERED: ONDANSETRON INJ 2 MG/ML 2 ML VIAL IV PRN ×2 (13:51→14:43)
[2023-01-04] MEDS ORDERED: ORTHO JOINT ANESTHETIC ONE (13:57)
[2023-01-04] MEDS ORDERED: diphenhydrAMINE Capsule 25 MG CAP PO PRN (14:43)
[2023-01-04] MEDS ORDERED: METOCLOPRAMIDE HCL INJ 5 MG/ML 2 ML VIAL IV PRN (14:43)
[2023-01-04] MEDS ORDERED: bisacodyL 10 MG SUPP PR PRN (14:43)
[2023-01-04] MEDS ORDERED: NALOXONE HCL 0.4 MG/1 ML VIAL/CARP IV PRN (14:43)
[2023-01-04] MEDS ORDERED: HYDROmorphone INJ 1 MG/ML SYRINGE IV PRN (14:43)
[2023-01-04] MEDS ORDERED: MAGNESIUM HYDROXIDE SUSP 30 ML UDC PO PRN (14:43)
[2023-01-04] MEDS ORDERED: ONDANSETRON INJ 2 MG/ML 2 ML VIAL ONE (15:17)
[2023-01-04] MEDS ORDERED: PROPOFOL IV EMULSION 10 MG/ML 20 ML VIAL IV ONE (15:17)
--- NOTE | 2023-01-04 15:40 | Operative Report ---
Post Operative Report Pre & Post Diagnosis Operation Date: 01/04/23 12:10 Pre-Op Diagnosis: Right Knee Painful Total Knee Post-Op Diagnosis: Right Knee Painful Total Knee With broken tibial poly I identified the patient and participated in the time-out.: Yes Procedure Operation Date: 01/04/23 12:10 Actual Procedures p Right Knee Poly Exchange(Right)To size three 4 x 13 tibial poly - Akin Bruno DO Surgeon Akin Bruno DO Commissions Specialist Zach HARRIS Estimated Blood Loss 2 Findings Consistent with Post-Op Diagnosis Patient presents with a sudden acute onset of instability and locking of her k nee where she had broken her tibial post presents for poly change and evaluation of implants Specimens Patient presents with a sudden acute onset of instability and locking of her knee where she had broken her tibial post presents for poly change and evaluation of implants tibial polyethylene Drains Medium bore Hemovac Anesthesia Type MAC Spinal Regional Complications none Disposition Accompanied Patient To Recovery: No Disposition: Recovery Room Indications Patient presents with sudden instability of her right total knee arthroplasty with had to have a reduction in the emergency room presents with a broken tibial polyethylene post Description of Procedure After initiation of general and regional anesthesia the right lower extremity socially prepped and sterile fashion with surgeon's type utilizing anterior previous midline incision dissection was carried down through subcutaneous tissues the medial parapatellar incision was made the patella subluxed lateralward and limited synovectomy was performed the tibial poly was clearly broken as the post that was sitting within the notch the tibial post was removed all poly debris was removed the tibial polyethylene was removed the wound was irrigated with copious muscle sterile saline solution a size 13 was trialed and gave excellent stability with full extension flexion 145 degrees excellent patellar tracking the components of the femur tibia and patella are all in excellent condition and no sign of any loosening was noted subsequently the final poly was brought onto the field and placed then the wound was closed medial hand parapatellar was closed with 2-0 FiberWire and a running V lock subcu was closed with 3-0 Vicryl and a running strata fix skin glue was placed patient has sterile compressive dressing placed patient taken recovery stable condition please note STEVEN Erickson was an active participant in the case was necessary for retraction placement of polywound closure deep fascia subcu and skin was necessary for the case I attest to the content of the Intraoperative Record and any orders documented therein. Any exceptions are noted below.
--- NOTE | 2023-01-04 16:52 | Anesthesiology Progress Note ---
Date of Service January 04, 2023 Anesthesia Post Procedure Vital Signs Vital Signs: Temp Pulse Resp BP Pulse Ox O2 Del Method O2 Flow Rate 01/04/23 16:45 52 L 12 129/61 100 Room Air 01/04/23 16:35 52 L 12 127/60 100 Room Air 01/04/23 16:25 54 L 12 125/61 100 Room Air 01/04/23 16:15 60 16 130/62 100 Room Air 01/04/23 16:09 36.8 C 60 16 122/58 L 100 Oxymask 6 01/04/23 10:33 37 C 55 L 20 171/77 H 99 Room Air Pain Intensity Right Knee: Pain Intensity: 0 Transfer of Care Handoff Completed per policy Notes Mental Status: alert / awake / arousable and participated in evaluation Patient Amnestic to Procedure: Yes Nausea / Vomiting: adequately controlled Pain: adequately controlled Airway Patency, RR, SpO2: stable & adequate BP & HR: stable & adequate Hydration State: stable & adequate Neuraxial Anesthesia: was administered and sensory block is resolving Anesthetic Complications: no major complications apparent and Pt Satisfied with anesthetic care
--- NOTE | 2023-01-04 17:07 | XRay Report ---
RIGHT KNEE 2 VIEWS History: Right total knee arthroplasty. Degenerative arthritis. Postop. FINDINGS: The patient is status post a right total knee arthroplasty. The hardware is intact. No frac ture or dislocation. Skin mindy are in place. IMPRESSION: Right total knee arthroplasty. No evidence for hardware complication. ACT 112: Negative or not required by law. Electronically signed by: Alden Padgett M.D. 01/04/2023 5:06 PM
[2023-01-04] MEDS ORDERED: SENNOSIDES DOCUSATE SODIUM PO PRN (17:58)
[2023-01-04] MEDS: SODIUM CHLORIDE 0.9% 1000ML 1,000 ML IV SCH (18:03)
[2023-01-04] MEDS: KETOROLAC TROMETHAMINE 15 MG/ML VIAL IV SCH ×2 (19:26→23:30)
[2023-01-04] MEDS: ASCORBIC ACID 500 MG TAB PO SCH (20:30)
[2023-01-04] MEDS: ceFAZolin 2000MG 2,000 MG/15 ML SYR IV SCH (20:30)
[2023-01-04] MEDS: ASPIRIN 81 MG ECTAB PO SCH (20:31)
[2023-01-04] MEDS: DOCUSATE SODIUM 100 MG CAP PO SCH (20:31)
[2023-01-04] MEDS ORDERED: DULoxetine HCL 60 MG CAP PO SCH (21:00)
[2023-01-04] MEDS ORDERED: SENNA 8.6 MG TAB PO SCH (21:00)
[2023-01-04] MEDS ORDERED: SIMVASTATIN 20 MG TAB PO SCH (21:00)
[2023-01-04] MEDS: ACETAMINOPHEN 500 MG TAB PO SCH (22:11)
[2023-01-05] MEDS: oxyCODONE HCL IR 5 MG TAB (IMMEDIATE RELEASE) PO PRN ×3 (01:34→11:03)
[2023-01-05] MEDS: SODIUM CHLORIDE 0.9% 1000ML 1,000 ML IV SCH (03:12)
[2023-01-05] MEDS: ceFAZolin 2000MG 2,000 MG/15 ML SYR IV SCH (05:08)
[2023-01-05] MEDS: KETOROLAC TROMETHAMINE 15 MG/ML VIAL IV SCH ×2 (05:08→12:12)
[2023-01-05] MEDS: ACETAMINOPHEN 500 MG TAB PO SCH (05:08)
[2023-01-05] MEDS ORDERED: LEVOTHYROXINE SODIUM 75 MCG TABLET PO SCH (06:30)
--- NOTE | 2023-01-05 07:16 | Orthopedic Progress Note ---
Date of Service January 05, 2023 Assessment & Plan (1) Painful total knee replacement, right: Plan: POD #1 s/p Right knee poly exchange for broken post pt/ot dvt proph with DEVAUGHN/SCD/ASA plan for d/c home with HHPT after PT Today, states she has family that will come stay with her once she is home will see if we can have a TONI dressing applied prior to her discharge x 7 days. Admission and Anticipated Discharge Date Admission Date: January 04, 2023 Subjective POD #1 s/p Right knee poly exchange Review of Systems Constitutional: no fever, no chills and no sweats Respiratory: no cough and no dyspnea Cardiovascular: no chest pain and no dyspnea Gastrointestinal: no abdominal pain, no nausea and no vomiting Physical Exam Physical Exam: Vital Signs Temp 36.7 C 01/05/23 03:15 Pulse 59 L 01/05/23 03:15 Resp 16 01/05/23 03:15 BP 142/77 H 01/05/23 03:15 Pulse Ox 95 01/05/23 03:15 O2 Del Method Room Air 01/05/23 03:15 O2 Flow Rate 6 01/04/23 16:09 Intake & Output 01/04/23 01/05/23 01/05/23 18:59 06:59 18:59 Intake Total 1300 / 3075 1775 / 3075 Output Total 5 / 305 300 / 305 Balance 1295 / 2770 1475 / 2770 Weight 87.9 kg Intake: IV 100 / 1515 1415 / 1515 Lactated Ringe r's 1,000 ml @ 15 0 / 0 mls/hr IV .Q24 H CRYSTAL Rx#: [id number] Sodium Chlorid e 0.9% 1000ML 1, 1415 / 1415 000 ml @ 100 m ls/hr IV .Q10H [facility] Rx#:[id number] Tranexamic Aci d / 0.7% NaCl 1, 100 / 100 000 mg In 100 ml @ 600 mls/hr IV TODAY@0600 [facility] Rx#:[id number] IV Perioperative 1200 / 1200 Oral 360 / 360 Output: Urine 300 / 300 Estimated Blood Loss 5 / 5 Other: # Unmeasured Voi ds 1 Weight Measureme nt Method Standing Scale Musculoskeletal: Right Leg: NVDI, calf SNT, negative eden sign. DP palpable, able to wiggle toes/ankle movement without difficulty. dressing clean dry and intact. Results & Data Vital Signs (Past 12 Hours) Vital Signs Temp Pulse Resp BP Pulse Ox O2 Del Method 01/05/23 03:15 36.7 C 59 L 16 142/77 H 95 Room Air 01/04/23 23:22 36.5 C 52 L 20 116/66 96 Room Air 01/04/23 21:03 36.3 C L 50 L 18 117/68 99 Room Air 01/04/23 20:02 36.4 C L 56 L 18 121/71 98 Room Air Diagnostic Findings Laboratory Results WBC 7.51 K/ul (4.8-10.8) 01/04/23 10:31 RBC 4.69 M/uL (4.20-5.40) 01/04/23 10:31 Hgb 15.0 g/dl (12.0-16.0) 01/04/23 10:31 Hct 44.6 % (37.0-47.0) 01/04/23 10:31 MCV 95.1 fL (80.0-100.0) 01/04/23 10:31 MCH 32.0 pg (25.0-34.0) 01/04/23 10:31 MCHC 33.6 g/dL (32.0-36.0) 01/04/23 10:31 RDW Std Deviation 46.1 fL (36.4-46.3) 01/04/23 10:31 RDW Coeff of Arcelia 13.2 % (11.5-14.5) 01/04/23 10:31 Plt Count 170 K/uL (130-400) 01/04/23 10:31 MPV 11.5 fL (9.4-12.4) 01/04/23 10:31 Immature Gran % (Auto) 0.3 % 01/04/23 10:31 Neut % (Auto) 69.6 % 01/04/23 10:31 Lymph % (Auto) 17.3 % 01/04/23 10:31 [place] % (Auto) 9.6 % 01/04/23 10:31 Eos % (Auto) 2.4 % 01/04/23 10:31 Baso % (Auto) 0.8 % 01/04/23 10:31 Neut # (Auto) 5.23 K/uL (1.40-6.50) 01/04/23 10:31 Lymph # (Auto) 1.30 K/uL (1.2-3.4) 01/04/23 10:31 [place] # (Auto) 0.72 K/uL (0.11-0.59) H 01/04/23 10:31 Eos # (Auto) 0.18 K/uL (0-0.50) 01/04/23 10:31 Baso # (Auto) 0.06 K/uL (0-0.2) 01/04/23 10:31 Immature Gran # (Auto) 0.02 K/uL (0.01-0.20) 01/04/23 10:31 PT 12.1 Seconds (9.0-12.0) H 01/04/23 10:31 INR 1.1 (0.9-1.1) 01/04/23 10:31 APTT 25.8 Seconds (21.0-31.0) 01/04/23 10:31 PTT Ratio 0.9 01/04/23 10:31 Sodium 141 mmol/L (136-145) 01/04/23 10:31 Potassium 3.8 mmol/L (3.5-5.1) 01/04/23 10:31 Chloride 105 mmol/L (98-107) 01/04/23 10:31 Carbon Dioxide 29 mmol/L (21-32) 01/04/23 10:31 Anion Gap 7 (3-11) 01/04/23 10:31 BUN 18 mg/dl (6-23) 01/04/23 10:31 Creatinine 0.94 mg/dl (0.6-1.2) 01/04/23 10:31 Est Cr Clr Drug Dosing 55.7 ml/min 01/04/23 10:31 Est GFR ( Amer) 68.3 ml/min 01/04/23 10:31 Est GFR (Non-Af Amer) 58.9 ml/min 01/04/23 10:31 BUN/Creatinine Ratio 19.1 (10-20) 01/04/23 10:31 Glucose 100 mg/dl (70-99(Fasting)) H 01/04/23 10:31 Calcium 9.6 mg/dl (8.6-10.3) 01/04/23 10:31 SARS-CoV-2, RNA, NAAT NEGATIVE (NEGATIVE) 01/04/23 10:15 Blood Type B Positive 01/04/23 10:31 Antibody Screen NEGATIVE 01/04/23 10:31 Impressions Knee X-Ray 01/04/23 14:47 RIGHT KNEE 2 VIEWS History: Right total knee arthroplasty. Degenerative arthritis. Postop. FINDINGS: The patient is status post a right total knee arthroplasty. The hardware is intact. No fracture or dislocation. Skin mindy are in place. IMPRESSION: Right total knee arthroplasty. No evidence for hardware complication. ACT 112: Negative or not required by law. Electronically signed by: Alden Padgett M.D. 01/04/2023 5:06 PM
[2023-01-05 07:26] LABS: Hematocrit (blood only) 39.3 % (37.0-47.0); Hemoglobin 13.2 g/dl (12.0-16.0); Mean Corpuscular Hemoglobin 32.1 pg (25.0-34.0); Mean Corpuscular Hgb Conc 33.6 g/dL (32.0-36.0); Mean Corpuscular Volume 95.6 fL (80.0-100.0); Mean Platelet Volume 12.1 fL (9.4-12.4); Platelet Count 154 K/uL (130-400); RDW Coefficient of Variation 12.9 % (11.5-14.5); RDW Standard Deviation 45.6 fL (36.4-46.3); Red Blood Count 4.11 M/uL (4.20-5.40); White Blood Count 9.42 K/ul (4.8-10.8)
[2023-01-05 07:39] LABS: BUN Creatinine Ratio 22.5 (10-20); Calcium 8.6 mg/dl (8.6-10.3); Creatinine Clr Calc Pharmacy 51.4 ml/min; Est GFR (African American) 61.9 ml/min; Est GFR (Non-African American) 53.4 ml/min
[2023-01-05] MEDS: DOCUSATE SODIUM 100 MG CAP PO SCH (08:31)
[2023-01-05] MEDS: ASCORBIC ACID 500 MG TAB PO SCH (08:31)
[2023-01-05] MEDS: ASPIRIN 81 MG ECTAB PO SCH (08:31)
[2023-01-05] MEDS ORDERED: lisinopril 5 MG TAB PO SCH (09:00)
[2023-01-05] MEDS ORDERED: ATENOLOL 25 MG TABLET PO SCH (09:00)
[2023-01-05] MEDS ORDERED: MULTIVITAMIN TAB PO SCH (09:00)
--- NOTE | 2023-01-06 09:58 | Discharge Summary ---
Date of Service date of discharge: January 05, 2023 date of admission: 01/04/23 Admission HPI Per Admitting Provider Bree is a pleasant 77-year-old female who presents for preop evaluation prior to her right knee poly exchange. 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 She states that on 522 she fell and injured her knee, she twisted her knee while in the shower and felt a "pop". She had x-rays and CT scan taken at [facility]. She was examined by Dr. Mehta and feels that she either has a broken post to the polyethylene or has jumped her post. Principal Diagnosis painful right total knee with broken poly Discharge Exam Musculoskeletal right knee: NVDI, calf SNT, negative eden sign. DP palpable, able to wiggle toes/ankle movement without difficulty. TONI dressing clean dry and intact. expected post-operative bruising noted. Discharge Data Allergies Allergy/AdvReac Type Severity Reaction Status Date / Time iodine Allergy Severe ANAPHYLAXIS Verified 01/04/23 10:36 ,RASH,REDNE SS naloxone Allergy Mild nausea Verified 01/04/23 10:36 Sulfa (Sulfonamide Allergy Unknown RASH, Verified 01/04/23 10:36 Antibiotics) TAKES HCTZ AT HOME enoxaparin [From Lovenox] Allergy hematoma Verified 01/04/23 10:36 and pain from hematoma meloxicam [From Mobic] Allergy weight gain Verified 01/04/23 10:36 adhesive AdvReac Mild SKIN Verified 01/04/23 10:36 TEARING AND BLISTERING codeine AdvReac Unknown NAUSEA Verified 01/04/23 10:36 hydrocodone AdvReac Unknown N&V Verified 01/04/23 10:36 morphine AdvReac Unknown N&V Verified 01/04/23 10:36 pentazocine AdvReac Unknown NAUSEA Verified 01/04/23 10:36 propoxyphene AdvReac Unknown N&V, TAKES Verified 01/04/23 10:36 AT HOME tramadol AdvReac Unknown NAUSEA Verified 01/04/23 10:36 Procedures Performed Operation Date: 01/04/23 12:10 Actual Procedures p Right Knee Poly Exchange(Right) - Akin Mehta DO Ordered Studies 01/04/23 05:00 US - OR guided needle placemen Routine Hospital Course (1) Painful total knee replacement, right: POD #1 s/p Right knee poly exchange for broken post pt/ot dvt proph with DEVAUGHN/SCD/ASA plan for d/c home with HHPT after PT Today, states she has family that will come stay with her once she is home will see if we can have a TONI dressing applied prior to her discharge x 7 days. Total Time Total Time Spent Total Time Spent (In Minutes): 20 Discharge Plan Discharge Items Patient Disposition: Home - Home Health Services Reason For Visit: POST OP POLY EXCHANGE Discharge Diagnosis: right knee poly exchange Activity: Per Instructions section Weightbearing Comment: WBAT with walker Non-emergency contact: Surgeon Call non-emergency contact if: you have any medication questions, your temperature is above 101, your wound has increased redness, your wound has increased drainage and your wound pain has increased Follow-up/Referrals: Autumn Magdaleno CRNP [Primary Care Provider] - Diet: Regular Addtl Attending Provider Instructions: ACTIVITY RECOMMENDATIONS: SELF CARE INSTRUCTIONS AFTER POLY EXCHANGE A. You may need to continue a physical therapy program after discharge from the hospital. There are several options available to you. Your doctor will assist you in selecting the best one for you. 1. An out-patient facility 2 to 3 times a week for therapy or home therapy. 2. Continue working on all exercises taught to you in the hospital. Your goals should be to increase bending of your knee to 90 degrees and beyond and to fully straighten your knee. B. You may progress at your own pace from walking with a walker or crutches to a cane; then to no assistive devices. C. Make walking a part of your daily routine. Be up as much as comfortable with rest periods throughout the day. Rest with leg elevation is very important. Use the ice wrap frequently for the first 3-4 weeks. D. There are no restrictions on activities. You may ride in a car, shop, participate in small animal veterinarian and all social activities. E. Wear the long elastic stockings (DEVAUGHN hose) 20 hours a day for 2 weeks after surgery. They can be removed several times a day for laundering and for a bath. F. You may shower, no tub baths until cleared by your doctor. SPECIAL CARE INSTRUCTIONS: VERY IMPORTANT TO READ AND REVIEW A. There are a few signs you need to watch for after you are home. Call [facility] if you notice any of the followin. Increased severe knee pain. Some pain is expected especially when you exercise. 2. Increased swelling in your leg or knee; pain or swelling of the calf muscle in either lower leg. 3. Any fluid drainage from the incision. 4. Shortness of breath or chest pain. B. Please call [facility] at if you have any concerns or questions about your operation or recovery. The doctor or his nurse will return your call promptly. C. You must take antibiotics before dental work, bladder, bowel or other surgery. Your doctor will provide you with a permanent care to carry describing this precaution. IMPORTANT: * REMEMBER TO TAKE ASPIRIN, 81 MG, TWICE DAILY FOR 4 WEEKS UNLESS OTHERWISE DIRECTED. THIS IS YOUR BLOOD THINNER. * HIGH RISK PATIENTS MAY BE PRESCRIBED A STRONGER BLOOD THINNER. THIS WILL BE PROVIDED AT DISCHARGE. * CALL IF INCREASED PAIN, REDNESS, DRAINAGE OR FEVER GREATER THAT 101. * WEAR DEVAUGHN HOSE 20 HOURS PER DAY FOR 2 WEEKS. * TONI Dressing- This is a large suction dressing covering your incision. This will help pull any excess drainage from the wound and allow your incision to heal properly. You may shower with this if you can keep the unit outside of the shower. If any bleeding or leakage is noted please call your doctor's office. This will remain on your incision for 7 days and then should be removed. This can be done yourself or by the home nursing staff if applicable. The entire unit is disposable once removed. Once removed, keep incision clean and dry. If redness or drainage is noted, please call your surgeon. FOLLOW UP VISIT: If appointment is not already scheduled: Please call [facility] to make a follow-up appointment for 2 weeks after your surgery at . Pending Studies at Discharge: No Stand-Alone Forms: My [facility] [employer] [facility], Pain - Opioid Pain Management, Smoking Cessation Medications and DC Order Prescriptions: New aspirin 81 mg Tablet,Delayed Release (Dr/Ec) 81 mg PO BID 30 Days Qty: 60 0RF acetaminophen [Tylenol Extra Strength] 500 mg Tablet 1,000 mg PO Q8 21 Days Qty: 126 0RF oxycodone 5 mg Tablet 5 - 10 mg PO Q6H PRN (Reason: pain) Qty: 30 0RF Rx Instructions: ongoing therapy, supervising dr misty mehta. max 6 tabs in 24 hours ondansetron 8 mg tablet,disintegrating 8 mg PO Q8H PRN (Reason: nausea and vomiting) Qty: 20 0RF aspirin 81 mg tablet,delayed release (DR/EC) 81 mg PO BID 30 Days Qty: 60 0RF acetaminophen 500 mg tablet 1,000 mg PO Q8 21 Days Qty: 126 0RF cefadroxil 500 mg capsule 500 mg PO BID 14 Days Qty: 28 0RF oxycodone 5 mg tablet 5 - 10 mg PO Q6H PRN (Reason: pain) Qty: 30 0RF Rx Instructions: ongoing therapy, supervising dr misty mehta. max 6 tabs in 24 hours ondansetron 8 mg tablet,disintegrating 8 mg PO Q8H PRN (Reason: nausea and vomiting) Qty: 20 0RF Continued furosemide [Lasix] 40 mg tablet 40 mg PO BID atenolol 25 mg tablet 25 mg PO QAM lisinopril 5 mg tablet 5 mg PO QAM simvastatin 20 mg tablet 20 mg PO HS cholecalciferol (vitamin D3) 25 mcg (1,000 unit) capsule 25 mcg PO QAM Citracal-D3 Plus Heart Health 315-250-200 mg-unit-mg tablet 1 tab PO BID Senna Plus 8.6-50 mg capsule 2 tab-cap PO BID PRN (Reason: Constipation) Sambucus Elderberry 30-1.1-25 mg tablet,chewable 1 tab PO BID diclofenac sodium 75 mg tablet,delayed release (DR/EC) 75 mg PO BID levothyroxine 75 mcg tablet 75 mcg PO QAM ascorbic acid (vitamin C) [Vitamin C With Keturah Hips] 500 mg Tablet 500 mg PO BID Centrum Silver Women 8 mg iron-400 mcg-300 mcg Tablet 2 tab PO QAM Patient Comments: gummies biotin 1,000 mcg Tablet,Chewable 1,000 mcg PO BID duloxetine [Cymbalta] 60 mg capsule,delayed release(DR/EC) 60 mg PO QPM Patient Comments: lunchtime Held hydroxychloroquine 200 mg Tablet 200 mg PO BID Hold Instructions: Resume on 01/19/23. Discharge Orders: Discharge Order (Routine); Ordered 01/05/23 Ordered By: Zach Velazquez/Other Patient Handouts: DVT Post Op Prevention Admission Data Admit Date/Time: 01/04/23 14:43 Attending Provider: Akin Mehta Admit Provider: Akin Mehta Primary Care Provider: Autumn Magdaleno Other Interventions: Discharge Summary Assessment (RN) Last Done: 01/05/23 11:37
== END 2023-01-05 14:45 | disposition home health service (06) | DRG 468 ==
LOC: ASU 09:57 → 3E 14:43